=== PATIENT | male | born 1960 | race Caucasian/White ===

== ENCOUNTER 2024-03-06 09:13 | Emergency (ER) | payer MEDICARE, OTHER ==
[2024-03-06] MEDS: fentaNYL 50 MCG/ML SDV IM ONE (10:17)
== END 2024-03-06 11:12 | disposition home or self-care (01) ==
LOC: VM.ED 09:13
DX: M19.011 Primary osteoarthritis, right shoulder (principal); Z79.899 Other long term (current) drug therapy
CPT/HCPCS: 73030; 96372; 99283; J3010